=== PATIENT | female | born 1970 | race Caucasian/White ===

== ENCOUNTER → 2020-02-23 07:42 | Outpatient (BNVA) | payer MEDICAID, SELFPAY | PROVIDERS: Family Provider Family Medicine; PCP Family Medicine; Visit Provider Nurse Practitioner Psychiatric/Mental Health | DX: F31.81 Bipolar II disorder (principal); F40.01 Agoraphobia with panic disorder; F90.0 Attention-deficit hyperactivity disorder, predominantly inattentive type; F43.12 Post-traumatic stress disorder, chronic; F50.2 Bulimia nervosa | CPT/HCPCS: 99214 ==

== ENCOUNTER → 2020-04-18 08:02 | Outpatient (BNVA) | payer MEDICAID, SELFPAY | PROVIDERS: Family Provider Family Medicine; PCP Family Medicine; Visit Provider Nurse Practitioner Psychiatric/Mental Health | DX: F31.81 Bipolar II disorder (principal); F40.01 Agoraphobia with panic disorder; F60.3 Borderline personality disorder; F90.0 Attention-deficit hyperactivity disorder, predominantly inattentive type; F43.12 Post-traumatic stress disorder, chronic; F50.2 Bulimia nervosa; F41.1 Generalized anxiety disorder; Z79.899 Other long term (current) drug therapy | CPT/HCPCS: 99214 ==

== ENCOUNTER → 2020-05-03 07:47 | Outpatient (BNVA) | payer MEDICAID, SELFPAY | PROVIDERS: Family Provider Family Medicine; PCP Family Medicine; Visit Provider Social Worker Clinical | DX: F43.12 Post-traumatic stress disorder, chronic (principal); F33.2 Major depressive disorder, recurrent severe without psychotic features; F41.0 Panic disorder [episodic paroxysmal anxiety] | CPT/HCPCS: 90791 ==

== ENCOUNTER → 2020-05-15 07:36 | Outpatient (BNVA) | payer MEDICAID, SELFPAY | PROVIDERS: Family Provider Family Medicine; PCP Family Medicine; Visit Provider Nurse Practitioner Psychiatric/Mental Health | DX: F31.81 Bipolar II disorder (principal); F40.01 Agoraphobia with panic disorder; F60.3 Borderline personality disorder; F90.0 Attention-deficit hyperactivity disorder, predominantly inattentive type; F43.12 Post-traumatic stress disorder, chronic; F50.2 Bulimia nervosa | CPT/HCPCS: 99214 ==

== ENCOUNTER → 2020-05-17 07:42 | Outpatient (BNVA) | payer MEDICAID, SELFPAY | PROVIDERS: Family Provider Family Medicine; PCP Family Medicine; Visit Provider Social Worker Clinical | DX: F60.3 Borderline personality disorder (principal); F50.2 Bulimia nervosa; F31.81 Bipolar II disorder; F43.12 Post-traumatic stress disorder, chronic; F40.01 Agoraphobia with panic disorder | CPT/HCPCS: 90834 ==

== ENCOUNTER → 2020-07-17 08:32 | Outpatient (BNVA) | payer MEDICAID, SELFPAY | PROVIDERS: Family Provider Family Medicine; PCP Family Medicine; Visit Provider Nurse Practitioner Psychiatric/Mental Health | DX: F31.81 Bipolar II disorder (principal); F40.01 Agoraphobia with panic disorder; F60.3 Borderline personality disorder; F90.0 Attention-deficit hyperactivity disorder, predominantly inattentive type; F43.12 Post-traumatic stress disorder, chronic; F50.2 Bulimia nervosa | CPT/HCPCS: 99214 ==

== ENCOUNTER → 2020-07-31 08:51 | Outpatient (BNVA) | payer MEDICAID, SELFPAY | PROVIDERS: Family Provider Family Medicine; PCP Family Medicine; Visit Provider Social Worker Clinical | DX: F60.3 Borderline personality disorder (principal); F50.2 Bulimia nervosa; F31.81 Bipolar II disorder; F43.12 Post-traumatic stress disorder, chronic; F40.01 Agoraphobia with panic disorder | CPT/HCPCS: 90834 ==

== ENCOUNTER → 2020-08-14 07:57 | Outpatient (BNVA) | payer MEDICAID, SELFPAY | PROVIDERS: Family Provider Family Medicine; PCP Family Medicine; Visit Provider Nurse Practitioner Psychiatric/Mental Health | DX: F31.81 Bipolar II disorder (principal); F40.01 Agoraphobia with panic disorder; F60.3 Borderline personality disorder; F90.0 Attention-deficit hyperactivity disorder, predominantly inattentive type; F43.12 Post-traumatic stress disorder, chronic; F50.2 Bulimia nervosa | CPT/HCPCS: 99214 ==

== ENCOUNTER → 2020-08-24 12:36 | Outpatient (BNVA) | payer MEDICAID, SELFPAY | PROVIDERS: Family Provider Family Medicine; PCP Family Medicine; Visit Provider Nurse Practitioner Psychiatric/Mental Health | DX: Z79.899 Other long term (current) drug therapy (principal) | CPT/HCPCS: 80053; 80061; 83036; 84443; 85025 ==

== ENCOUNTER → 2020-09-04 08:52 | Outpatient (BNVA) | payer MEDICAID, SELFPAY | PROVIDERS: Family Provider Family Medicine; PCP Family Medicine; Visit Provider Nurse Practitioner Psychiatric/Mental Health | DX: F31.81 Bipolar II disorder (principal); F40.01 Agoraphobia with panic disorder; F17.210 Nicotine dependence, cigarettes, uncomplicated; F60.3 Borderline personality disorder; F90.0 Attention-deficit hyperactivity disorder, predominantly inattentive type; F43.12 Post-traumatic stress disorder, chronic | CPT/HCPCS: 99214 ==

== ENCOUNTER → 2020-09-14 09:14 | Outpatient (BNVA) | payer MEDICAID, SELFPAY | PROVIDERS: Family Provider Family Medicine; PCP Family Medicine; Visit Provider Nurse Practitioner Psychiatric/Mental Health | DX: F31.81 Bipolar II disorder (principal); F40.01 Agoraphobia with panic disorder; F60.3 Borderline personality disorder; F90.0 Attention-deficit hyperactivity disorder, predominantly inattentive type; F43.12 Post-traumatic stress disorder, chronic; F50.2 Bulimia nervosa; F41.1 Generalized anxiety disorder | CPT/HCPCS: 99214 ==

== ENCOUNTER → 2020-09-22 07:34 | Outpatient (BNVA) | payer MEDICAID, SELFPAY | PROVIDERS: Family Provider Family Medicine; PCP Family Medicine; Visit Provider Social Worker Clinical | DX: F60.3 Borderline personality disorder (principal); F50.2 Bulimia nervosa; F31.81 Bipolar II disorder; F43.12 Post-traumatic stress disorder, chronic; F90.0 Attention-deficit hyperactivity disorder, predominantly inattentive type | CPT/HCPCS: 90834 ==

== ENCOUNTER → 2020-09-28 08:37 | Outpatient (BNVA) | payer MEDICAID, SELFPAY | PROVIDERS: Family Provider Family Medicine; PCP Family Medicine; Visit Provider Nurse Practitioner Psychiatric/Mental Health | DX: F31.81 Bipolar II disorder (principal); F40.01 Agoraphobia with panic disorder; F60.3 Borderline personality disorder; F90.0 Attention-deficit hyperactivity disorder, predominantly inattentive type; F43.12 Post-traumatic stress disorder, chronic; F50.2 Bulimia nervosa | CPT/HCPCS: 99214 ==

== ENCOUNTER → 2020-10-17 08:09 | Outpatient (BNVA) | payer MEDICAID, SELFPAY | PROVIDERS: Family Provider Family Medicine; PCP Family Medicine; Visit Provider Social Worker Clinical | DX: F60.3 Borderline personality disorder (principal); F50.2 Bulimia nervosa; F31.81 Bipolar II disorder; F43.12 Post-traumatic stress disorder, chronic; F90.0 Attention-deficit hyperactivity disorder, predominantly inattentive type | CPT/HCPCS: 90832 ==

== ENCOUNTER → 2020-10-24 08:21 | Outpatient (BNVA) | payer MEDICAID, SELFPAY | PROVIDERS: Family Provider Family Medicine; PCP Family Medicine; Visit Provider Social Worker Clinical | DX: F60.3 Borderline personality disorder (principal); F50.2 Bulimia nervosa; F31.81 Bipolar II disorder; F43.12 Post-traumatic stress disorder, chronic; F40.01 Agoraphobia with panic disorder | CPT/HCPCS: 90832 ==

== ENCOUNTER → 2020-10-25 07:37 | Outpatient (BNVA) | payer MEDICAID, SELFPAY | PROVIDERS: Family Provider Family Medicine; PCP Family Medicine; Visit Provider Nurse Practitioner Psychiatric/Mental Health | DX: F31.81 Bipolar II disorder (principal); F40.01 Agoraphobia with panic disorder; F60.3 Borderline personality disorder; F90.0 Attention-deficit hyperactivity disorder, predominantly inattentive type; F43.12 Post-traumatic stress disorder, chronic; F50.2 Bulimia nervosa | CPT/HCPCS: 99213 ==

== ENCOUNTER → 2020-12-06 07:40 | Outpatient (BNVA) | payer MEDICAID, SELFPAY | PROVIDERS: Family Provider Family Medicine; PCP Family Medicine; Visit Provider Nurse Practitioner Psychiatric/Mental Health | DX: F31.81 Bipolar II disorder (principal); F40.01 Agoraphobia with panic disorder; F60.3 Borderline personality disorder; F90.0 Attention-deficit hyperactivity disorder, predominantly inattentive type; F43.12 Post-traumatic stress disorder, chronic; F50.2 Bulimia nervosa | CPT/HCPCS: 99213 ==

== ENCOUNTER → 2021-02-19 07:22 | Outpatient (BNVA) | payer MEDICAID, SELFPAY | PROVIDERS: Family Provider Family Medicine; PCP Family Medicine; Visit Provider Nurse Practitioner Psychiatric/Mental Health | DX: F31.81 Bipolar II disorder (principal); F40.01 Agoraphobia with panic disorder; F43.12 Post-traumatic stress disorder, chronic; F60.3 Borderline personality disorder; Z03.89 Encounter for observation for other suspected diseases and conditions ruled out; Z79.899 Other long term (current) drug therapy; F90.0 Attention-deficit hyperactivity disorder, predominantly inattentive type; F50.2 Bulimia nervosa | CPT/HCPCS: 99214 ==

== ENCOUNTER → 2021-03-26 08:00 | Outpatient (BNVA) | payer MEDICAID, SELFPAY | PROVIDERS: Family Provider Family Medicine; PCP Family Medicine; Visit Provider Social Worker Clinical | DX: F60.3 Borderline personality disorder (principal); F31.81 Bipolar II disorder; F43.12 Post-traumatic stress disorder, chronic; F90.0 Attention-deficit hyperactivity disorder, predominantly inattentive type; F40.01 Agoraphobia with panic disorder | CPT/HCPCS: 90834 ==

== ENCOUNTER → 2021-03-27 07:57 | Outpatient (BNVA) | payer MEDICAID, SELFPAY | PROVIDERS: Family Provider Family Medicine; PCP Family Medicine; Visit Provider Nurse Practitioner Psychiatric/Mental Health | DX: F31.81 Bipolar II disorder (principal); F17.210 Nicotine dependence, cigarettes, uncomplicated; F40.01 Agoraphobia with panic disorder; F60.3 Borderline personality disorder; Z03.89 Encounter for observation for other suspected diseases and conditions ruled out; F90.0 Attention-deficit hyperactivity disorder, predominantly inattentive type; F43.12 Post-traumatic stress disorder, chronic; F50.2 Bulimia nervosa | CPT/HCPCS: 99214 ==

== ENCOUNTER → 2021-04-03 08:09 | Outpatient (BNVA) | payer MEDICAID, SELFPAY | PROVIDERS: Family Provider Family Medicine; PCP Family Medicine; Visit Provider Nurse Practitioner Psychiatric/Mental Health | DX: F31.81 Bipolar II disorder (principal); F40.01 Agoraphobia with panic disorder; F17.210 Nicotine dependence, cigarettes, uncomplicated; F60.3 Borderline personality disorder; F90.0 Attention-deficit hyperactivity disorder, predominantly inattentive type; F43.12 Post-traumatic stress disorder, chronic; F50.2 Bulimia nervosa | CPT/HCPCS: 99214 ==

== ENCOUNTER → 2021-04-24 07:31 | Outpatient (BNVA) | payer MEDICAID, SELFPAY | PROVIDERS: Family Provider Family Medicine; PCP Family Medicine; Visit Provider Nurse Practitioner Psychiatric/Mental Health | DX: F31.81 Bipolar II disorder (principal); F40.01 Agoraphobia with panic disorder; F17.210 Nicotine dependence, cigarettes, uncomplicated; F60.3 Borderline personality disorder; F90.0 Attention-deficit hyperactivity disorder, predominantly inattentive type; F43.12 Post-traumatic stress disorder, chronic; F50.2 Bulimia nervosa | CPT/HCPCS: 99214 ==

== ENCOUNTER → 2021-05-08 07:21 | Outpatient (BNVA) | payer MEDICAID, SELFPAY | PROVIDERS: Family Provider Family Medicine; PCP Family Medicine; Visit Provider Nurse Practitioner Psychiatric/Mental Health | DX: F31.81 Bipolar II disorder (principal); F40.01 Agoraphobia with panic disorder; F60.3 Borderline personality disorder; F90.0 Attention-deficit hyperactivity disorder, predominantly inattentive type; F43.12 Post-traumatic stress disorder, chronic; F50.2 Bulimia nervosa; F17.210 Nicotine dependence, cigarettes, uncomplicated | CPT/HCPCS: 99214 ==

== ENCOUNTER → 2021-07-03 07:23 | Outpatient (BNVA) | payer MEDICAID, SELFPAY | PROVIDERS: Family Provider Family Medicine; PCP Family Medicine; Visit Provider Nurse Practitioner Psychiatric/Mental Health | DX: F31.81 Bipolar II disorder (principal); F40.01 Agoraphobia with panic disorder; F60.3 Borderline personality disorder; F90.0 Attention-deficit hyperactivity disorder, predominantly inattentive type; F43.12 Post-traumatic stress disorder, chronic; F50.2 Bulimia nervosa | CPT/HCPCS: 99214 ==

== ENCOUNTER → 2021-09-04 07:51 | Outpatient (BNVA) | payer MEDICAID, SELFPAY | PROVIDERS: Family Provider Family Medicine; PCP Family Medicine; Visit Provider Nurse Practitioner Psychiatric/Mental Health | DX: F31.81 Bipolar II disorder (principal); F40.01 Agoraphobia with panic disorder; F60.3 Borderline personality disorder; F90.0 Attention-deficit hyperactivity disorder, predominantly inattentive type; F43.12 Post-traumatic stress disorder, chronic; Z79.899 Other long term (current) drug therapy; F50.2 Bulimia nervosa | CPT/HCPCS: 99214 ==

== ENCOUNTER → 2021-10-09 08:02 | Outpatient (BNVA) | payer MEDICAID, SELFPAY | PROVIDERS: Family Provider Family Medicine; PCP Family Medicine; Visit Provider Nurse Practitioner Psychiatric/Mental Health | DX: F31.81 Bipolar II disorder (principal); F40.01 Agoraphobia with panic disorder; F60.3 Borderline personality disorder; F90.0 Attention-deficit hyperactivity disorder, predominantly inattentive type; F43.12 Post-traumatic stress disorder, chronic; F50.2 Bulimia nervosa | CPT/HCPCS: 99214 ==

== ENCOUNTER → 2021-10-31 09:48 | Outpatient (BNVA) | payer MEDICAID, SELFPAY | PROVIDERS: Family Provider Family Medicine; PCP Family Medicine; Visit Provider Social Worker Clinical | DX: F43.12 Post-traumatic stress disorder, chronic (principal); F40.01 Agoraphobia with panic disorder; F33.2 Major depressive disorder, recurrent severe without psychotic features | CPT/HCPCS: 90791 ==

== ENCOUNTER → 2021-11-19 07:38 | Outpatient (BNVA) | payer MEDICAID, SELFPAY | PROVIDERS: Family Provider Family Medicine; PCP Family Medicine; Visit Provider Nurse Practitioner Psychiatric/Mental Health | DX: F31.81 Bipolar II disorder (principal); F40.01 Agoraphobia with panic disorder; F60.3 Borderline personality disorder; F90.0 Attention-deficit hyperactivity disorder, predominantly inattentive type; F43.12 Post-traumatic stress disorder, chronic; F50.2 Bulimia nervosa | CPT/HCPCS: 99214 ==

== ENCOUNTER → 2021-12-13 08:28 | Outpatient (BNVA) | payer MEDICAID, SELFPAY | PROVIDERS: Family Provider Family Medicine; PCP Family Medicine; Visit Provider Social Worker Clinical | DX: F60.3 Borderline personality disorder (principal); F31.81 Bipolar II disorder; F43.12 Post-traumatic stress disorder, chronic; F90.0 Attention-deficit hyperactivity disorder, predominantly inattentive type; F40.01 Agoraphobia with panic disorder | CPT/HCPCS: 90834 ==

== ENCOUNTER → 2021-12-24 07:28 | Outpatient (BNVA) | payer MEDICAID, SELFPAY | PROVIDERS: Family Provider Family Medicine; PCP Family Medicine; Visit Provider Nurse Practitioner Psychiatric/Mental Health | DX: F31.81 Bipolar II disorder (principal); F43.12 Post-traumatic stress disorder, chronic; F40.01 Agoraphobia with panic disorder; F60.3 Borderline personality disorder; F90.0 Attention-deficit hyperactivity disorder, predominantly inattentive type; F50.2 Bulimia nervosa | CPT/HCPCS: 99214 ==

== ENCOUNTER 2022-01-15 12:47 | Outpatient (CLI) | payer MEDICAID, SELFPAY ==
--- NOTE | 2022-01-15 13:12 | MR_ITS ---
WS: [id number] MRI LUMBAR SPINE NONCONTRAST HISTORY: RADICULOPATHY, LUMBOSACRAL REGION COMPARISON: None available. TECHNIQUE: Sagittal and axial multisequence imaging is submitted. On the fine arts model survey small osteophytes and disc protrusions throughout the cervical spine encroaching upon the cervical cord causing at least a mild stenosis from C3-4 to C5-6. There is an additional foc al disc protrusion at T2-3 causing mild contact on the cord. Marked straightening of the normal lumbar lordosis. Prior posterior lumbar fusion at L4-S1. No hardwa re noted at the L5 level. Interbody spacer at L4-5 and probably also at L5-S1. Disc space narrowing is moderate L4-5 and L5-S1. No fractures or marrow edema. Conus terminates normally at L1-2 disc level. T12-L1: Small RIGHT paracentral disc protrusion. L1-L2: Small LEFT paracentral disc protrusion with annular fissure. Mild contact on the ventral theca l sac and mild LEFT subarticular recess narrowing. L2-L3: Mild disc bulging. Mild ligamentum flavum hypertrophy and facet arthritis. Mild bilateral fora ozzie narrowing. L3-L4: Mild annular disc bulging. There is a very shallow LEFT proximal foraminal disc protrusion cau sing moderate subarticular recess stenosis. Mild ligamentum flavum hypertrophy. L4-L5: Mild deformity of the ventral thecal sac. On the axial sequence the interbody spacer may be di splaced posteriorly against thecal sac. This would be abutting the traversing LEFT L5 nerve root. The re may be distortion from the hardware. Mild LEFT foraminal stenosis. Moderate size laminectomy defec t. L5-S1: No significant stenosis. Moderate-sized posterior laminectomy defect. Posterior exophytic 9 mm cyst from the RIGHT kidney. MR/MR lumbar spine wo con* [id number] IMPRESSION: 1. Patient is status post posterior lumbar fusion with the hardware L4 and S1. Interbody spacers at L4-5 and L5-S1. 2. Suspect posterior retropulsion of the L4-5 interbody spacer contacting the LEFT lateral thecal sac and the LEFT L5 traversing nerve root. This can be conf irmed by CT evaluation of the lumbar spine. 3. Proximal LEFT foraminal disc protrusion at L3-4 resulting in moderate subar ticular stenosis. 4. Small RIGHT paracentral disc protrusion at T12-L1. 5. Small LEFT paracentral disc protrusion at L1-2 with mild contact and narrow ing of the LEFT subarticular recess.
== END 2022-01-15 12:48 | disposition home or self-care (01) ==
LOC: RAD 12:54
PROVIDERS: Visit Provider Nurse Practitioner
DX: M54.17 Radiculopathy, lumbosacral region (principal); M51.26 Other intervertebral disc displacement, lumbar region; M51.24 Other intervertebral disc displacement, thoracic region
CPT/HCPCS: 72148

== ENCOUNTER → 2022-01-28 08:20 | Outpatient (BNVA) | payer MEDICAID, SELFPAY | PROVIDERS: Visit Provider Social Worker Clinical | DX: F60.3 Borderline personality disorder (principal); F31.81 Bipolar II disorder; F43.12 Post-traumatic stress disorder, chronic; F90.0 Attention-deficit hyperactivity disorder, predominantly inattentive type; F40.01 Agoraphobia with panic disorder | CPT/HCPCS: 90834 ==

== ENCOUNTER → 2022-02-06 07:28 | Outpatient (BNVA) | payer MEDICAID, SELFPAY | PROVIDERS: Visit Provider Nurse Practitioner Psychiatric/Mental Health | DX: F31.81 Bipolar II disorder (principal); F40.01 Agoraphobia with panic disorder; F60.3 Borderline personality disorder; F90.0 Attention-deficit hyperactivity disorder, predominantly inattentive type; F43.12 Post-traumatic stress disorder, chronic; F50.2 Bulimia nervosa | CPT/HCPCS: 99214 ==

== ENCOUNTER → 2022-02-19 07:57 | Outpatient (BNVA) | payer MEDICAID, SELFPAY | PROVIDERS: Visit Provider Social Worker Clinical | DX: F60.3 Borderline personality disorder (principal); F31.81 Bipolar II disorder; F43.12 Post-traumatic stress disorder, chronic; F90.0 Attention-deficit hyperactivity disorder, predominantly inattentive type; F40.01 Agoraphobia with panic disorder | CPT/HCPCS: 90834 ==

== ENCOUNTER → 2022-02-26 07:17 | Outpatient (BNVA) | payer MEDICAID, SELFPAY | PROVIDERS: Visit Provider Social Worker Clinical | DX: F60.3 Borderline personality disorder (principal); F31.81 Bipolar II disorder; F43.12 Post-traumatic stress disorder, chronic; F90.0 Attention-deficit hyperactivity disorder, predominantly inattentive type; F40.01 Agoraphobia with panic disorder | CPT/HCPCS: 90834 ==

== ENCOUNTER → 2022-03-04 07:46 | Outpatient (BNVA) | payer MEDICAID, SELFPAY | PROVIDERS: Visit Provider Social Worker Clinical | DX: F60.3 Borderline personality disorder (principal); F31.81 Bipolar II disorder; F43.12 Post-traumatic stress disorder, chronic; F90.0 Attention-deficit hyperactivity disorder, predominantly inattentive type; F40.01 Agoraphobia with panic disorder | CPT/HCPCS: 90837; 90834 ==

== ENCOUNTER → 2022-03-18 08:48 | Outpatient (BNVA) | payer MEDICAID, SELFPAY | PROVIDERS: Visit Provider Social Worker Clinical | DX: F60.3 Borderline personality disorder (principal); F31.81 Bipolar II disorder; F43.12 Post-traumatic stress disorder, chronic; F90.0 Attention-deficit hyperactivity disorder, predominantly inattentive type; F40.01 Agoraphobia with panic disorder | CPT/HCPCS: 90832; 90834 ==

== ENCOUNTER 2022-03-18 17:08 | Inpatient (IN) | payer MEDICAID, SELFPAY ==
[2022-03-18 17:16] VITALS: BP 129/93; PULSE 101; RESP 18; TEMP 36.8; O2SAT 97; BMI 32.4
--- NOTE | 2022-03-18 17:42 | ED.C_ITS ---
HPI - Psych General: Chief Complaint: Psychiatric Symptoms Stated Complaint: Court ordered Time Seen by Provider: 03/18/22 17:39 Source: patient Mode of arrival: ambulatory Limitations: no limitations History of Present Illness: 52-year-old female is here with police for suicidal ideation she is under 96-hour hold as well. She does have a history of bipolar and depression states last time she was admitted inpatient was 2014 she states that she is under lots of stress has not been getting along with her and has a plan of blowing her brains out with a gun. She denies any worsening improving factors. Denies any recent attempts. Associated symptoms: Reports depression and suicidal ideation Review of Systems Const: Denies: fever(s), chills, body aches or change in appetite Eyes: Denies: blurry vision or eye discomfort ENMT: Denies: throat pain or dental pain Card: Denies: chest pain Resp: Denies: dyspnea GI: Denies: abdominal pain, nausea, vomiting or diarrhea : Denies: dysuria Musc: Denies: neck pain or back pain Skin/Breast: Denies: rash Neuro: Denies: headache(s) Psych: Reports: depression and suicidal ideation Sameer/Lymph: Denies: easy bruising All/Imm: Denies: urticaria PFSH ED PFSH: Medical History ADHD (attention deficit hyperactivity disorder), inattentive type Bipolar II disorder mixed episodes Borderline personality disorder Bulimia nervosa in remission Chronic post-traumatic stress disorder Panic disorder with agoraphobia Psychiatric care Social History Current gender identity: Female Physical Exam Const: COMMON NORMALS: patient oriented x3 GENERAL APPEARANCE: anxious HENMT: COMMON NORMALS: normocephalic and atraumatic HEAD & SCALP: normocephalic and atraumatic Eye: COMMON NORMALS: Equal, round and reactive pupils present and EOMs intact bilaterally PUPIL: Yes Equal, round and reactive pupils present Neck/C-Spine: COMMON NORMALS: full ROM and supple Chest: COMMONS NORMALS: normal inspection of the chest and normal palpation of entire chest wall Resp: COMMON NORMALS: normal respiratory effort, No retractions, No use of accessory muscles and clear to auscultation bilaterally AUSCULTATION: clear to auscultation bilaterally Cardio: COMMON NORMALS: regular rate, regular rhythm and No murmurs present (Cardio) RATE: regular rate RHYTHM: regular rhythm GI: COMMON NORMALS: Normal to inspection, nondistended, normoactive bowel sounds present, Soft to palpation, non-tender and no masses PALPATION: Yes Soft to palpation Extremity: COMMON NORMALS: normal to inspection and full ROM Neuro: COMMON NORMALS: patient oriented x3, moves all extremities and no focal motor deficits Psych: COMMON NORMALS: mental status grossly normal, Normal thought process present and cooperative THOUGHT PROCESS: Normal thought process present THOUGHT CONTENT: Yes Suicidality present Skin: COMMON NORMALS: no rashes or lesions noted and no wounds GENERAL SKIN EXAM: no rashes or lesions noted Course Vital Signs: Vital signs: Vital Signs Temperature 98.3 F 03/18/22 17:16 Pulse Rate 101 H 03/18/22 17:16 Respiratory Rate 18 03/18/22 17:16 Blood Pressure 129/93 03/18/22 17:16 Pulse Oximetry 97 03/18/22 17:16 MDM - Psych Medical Decision Making Patient presents here with suicidal ideations patient is under 96-hour hold patient admitted to the psychiatric zepeda here. Lab Data : 03/18/22 18:15 03/18/22 18:15 Laboratory Results WBC 7.6 10^3/uL (4.0-10.0) 03/18/22 18:15 RBC 4.67 10^6/uL (4.1-5.3) 03/18/22 18:15 Hgb 13.8 g/dL (11.5-15.3) 03/18/22 18:15 Hct 42.7 % (37.0-47.0) 03/18/22 18:15 MCV 91.4 fl (81-99) 03/18/22 18:15 MCH 29.6 pg (28.0-34.0) 03/18/22 18:15 MCHC 32.3 g/dL (30.0-36.0) 03/18/22 18:15 RDW 15.3 % (12.1-15.1) H 03/18/22 18:15 Plt Count 322 10^3/cmm (130-400) 03/18/22 18:15 MPV 9.8 fL (7.4-10.4) 03/18/22 18:15 Neut % (Auto) 64.5 % 03/18/22 18:15 Lymph % (Auto) 23.1 % 03/18/22 18:15 [place] % (Auto) 7.7 % 03/18/22 18:15 Eos % (Auto) 3.7 % 03/18/22 18:15 Baso % (Auto) 0.7 % 03/18/22 18:15 Neut # (Auto) 4.88 10^3/uL (1.8-7.7) 03/18/22 18:15 Lymph # (Auto) 1.8 10^3/uL (0.8-4.8) 03/18/22 18:15 [place] # (Auto) 0.6 10^3/uL (0.2-0.9) 03/18/22 18:15 Eos # (Auto) 0.3 10^3/uL (0.0-0.8) 03/18/22 18:15 Baso # (Auto) 0.1 10^3/uL (0.0-0.1) 03/18/22 18:15 Nucleated RBC % (auto) 0 % 03/18/22 18:15 Nucleated RBCs # 0.0 /100WBC 03/18/22 18:15 Discharge Plan Discharge Patient Disposition: Admitted As Inpatient Clinical Impression: Suicidal ideation Condition: Stable Coding Level of Care Code ED Drill Operator Pneumatic for Kurtisg Fwd Exam Comprehensive
[2022-03-18 18:22] LABS: Basophils # 0.1 10^3/uL (0.0-0.1); Basophils % 0.7 %; Eosinophils # 0.3 10^3/uL (0.0-0.8); Eosinophils % 3.7 %; Hematocrit 42.7 % (37.0-47.0); Hemoglobin 13.8 g/dL (11.5-15.3); Lymphocytes # 1.8 10^3/uL (0.8-4.8); Lymphocytes % 23.1 %; Mean Corpuscular HGB Conc 32.3 g/dL (30.0-36.0); Mean Corpuscular Hemoglobin 29.6 pg (28.0-34.0); Mean Corpuscular Volume 91.4 fl (81-99); Mean Platelet Volume 9.8 fL (7.4-10.4); Monocytes # 0.6 10^3/uL (0.2-0.9); Monocytes % 7.7 %; Neutrophils # 4.88 10^3/uL (1.8-7.7); Neutrophils % 64.5 %; Nucleated Red Blood Cells % 0 %; Platelet Count 322 10^3/cmm (130-400); Red Blood Count 4.67 10^6/uL (4.1-5.3); Red Cell Distribution Width 15.3 % (12.1-15.1); White Blood Count 7.6 10^3/uL (4.0-10.0)
[2022-03-18 18:45] LABS: Alanine Aminotransferase 17 U/L (0-33); Albumin Level 4.1 g/dL (3.5-5.2); Alkaline Phosphatase 105 IU/L (35-105); Anion Gap 11.6 (5-19); Aspartate Amino Transferase 14 U/L (0-32); Blood Urea Nitrogen 7 mg/dL (6-20); Calcium 9.2 mg/dL (8.5-10.5); Carbon Dioxide 28 mmol/L (22-29); Chloride 103 mmol/L (98-107); Globulin 3.2 g/dL (1.3-4.6); Glomerular Filtration Rate 129.1 mL/min (90-130); Glucose 98 mg/dL (65-115); Osmolality Calculated 286 mOsm/kg (285-295); Potassium 3.6 mmol/L (3.5-5.1); Salicylate 1.5 mg/dL (3-10); Sodium 139 mmol/L (136-145); Total Bilirubin 0.2 mg/dL (0.15-1.2); Total Protein 7.3 g/dL (6.6-8.7)
[2022-03-18 18:47] LABS: Acetaminophen < 5.0 ug/mL (10-30); Alcohol Level 10 mg/dL (0-10)
--- NOTE | 2022-03-18 19:01 | PC.NURSE ---
190 assumed pt care from Hector ELAINE
[2022-03-18 19:09] LABS: Amphetamines Screen Urine Positive (Negative); Barbiturates Screen Urine Negative (Negative); Benzodiazepines Screen Urine Positive (Negative); Cocaine Screen Urine Negative (Negative); Opiate Screen Urine Negative (Negative); PCP Screen Urine Negative (Negative); THC Screen Urine Negative (Negative)
[2022-03-18 20:58] VITALS: BP 135/103; PULSE 85; RESP 18; O2SAT 97
[2022-03-18 21:33] VITALS: BP 125/87; PULSE 77; RESP 17; TEMP 36.4; O2SAT 98
[2022-03-18 21:56] VITALS: BP 125/87; PULSE 77; RESP 17; TEMP 36.4; O2SAT 98
[2022-03-18] MEDS: trazodone 50 mg Tablet PO (22:16)
--- NOTE | 2022-03-18 23:07 | PC.NURSE ---
PER ED 52-year-old female is here with police for suicidal ideation she is under 96-hour hold as well. She does have a history of bipolar and depression states last time she was admitted inpatient was 2014 she states that she is under lots of stress has not been getting along with her and has a plan of blowing her brains out with a gun. She denies any worsening improving factors. Denies any recent attempts. Associated symptoms: Reports depression and suicidal ideation. UPON ARRIVAL TO NPU PT IS ANXIOUS BUT COOPERATIVE. STATES THAT SHE SPOKE TO HER THERAPIST ON THE PHONE THIS MORNING RIGHT AFTER A BIG ARGUMENT WITH AND VOICED SI. STATES THAT IT WAS JUST THOUGHTS AND HAD NO INTENT TO ACT ON IT. DENIES ANY CURRENT SI/HI OR AVH. REPORTS THAT SHE NEEDS TO MOVE OUT OF 'S HOUSE AND THAT THIS WILL FIX HER ISSUES. HAS HX OF PARTIAL HYSTERECTOMY, AND CALLI IN BACK FOR FUSION SURGERY. DIAGNOSES OF BIPOLAR, ADHD, BORDERLINE PERSONALITY, PTSD, PANIC DISORDER WITH AGORAPHOBIA AND A HX OF BULIMIA THAT IS IN REMISSION. MEDICATIONS NOT RESUMED THEY COULD NOT BE CONFIRMED TONIGHT, WILL CONFIRM IN MORNING WITH PHARMACY ([facility] IN [facility]). PT COOPERATIVE WITH CARE AND IS A&OX4. PT REPORTS MED LIST FOLLOWS WITH LAST DOSES TAKEN THIS MORNING- CLONAZAPAM 1 MG TID CLONIDINE 0.1 MG BID GABAPENTIN 300 MG QD VYVANCE 70 MG QAM OXCARBAZEPINE 600 MG BID
[2022-03-19 06:00] VITALS: BP 121/82; PULSE 67; RESP 16; TEMP 36.4; O2SAT 98
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
[2022-03-19 14:00] VITALS: BP 119/77; PULSE 77; RESP 16; TEMP 36.3; O2SAT 96
[2022-03-19] MEDS: acetaminophen 325 mg Tablet 650 MG PO (15:28)
[2022-03-19] MEDS: CLONazepam 1 mg Tablet PO ×2 (15:29→19:58)
[2022-03-19] MEDS: gabapentin 300 mg Capsule PO ×2 (16:02→19:57)
--- NOTE | 2022-03-19 17:10 | PC.SOCIAL ---
Patient did not attend group.
[2022-03-19 18:19] VITALS: BP 119/77
[2022-03-19] MEDS: cloNIDine 0.1 mg Tablet PO (18:19)
[2022-03-19] MEDS: OXcarbazepine 300 mg Tablet 600 MG PO (18:19)
[2022-03-19] MEDS: trazodone 50 mg Tablet PO ×2 (19:58→21:16)
[2022-03-19 21:10] VITALS: BP 129/89; PULSE 86; RESP 17; TEMP 36.4; O2SAT 96
[2022-03-20 06:00] VITALS: BP 118/78; PULSE 78; RESP 18; TEMP 36.8; O2SAT 96
[2022-03-20 08:44] VITALS: BP 118/78
[2022-03-20] MEDS: OXcarbazepine 300 mg Tablet 600 MG PO ×2 (08:44→17:31)
[2022-03-20] MEDS: CLONazepam 1 mg Tablet PO ×3 (08:44→20:02)
[2022-03-20] MEDS: gabapentin 300 mg Capsule PO ×2 (08:44→20:02)
[2022-03-20] MEDS: cloNIDine 0.1 mg Tablet PO ×2 (08:44→17:31)
[2022-03-20 14:00] VITALS: BP 124/69; PULSE 78; RESP 17; TEMP 36.6; O2SAT 97
--- NOTE | 2022-03-20 14:29 | P.NPUPN_ITS ---
Subjective NPU Subjective: Patient presents today reporting that she feels much better and denies any need to be in the hospital. She denies any need. We discussed the fact that she is on a 96-hour hold and we are still waiting to hear from son about weapon availability. We discussed the fact that Dr. Camilo would be there in the morning and the treatment team and the change would not make it harder for her to be discharged on the 96-hour hold. We discussed the likelihood of discharge in the morning but did not remove the chance that with information returning that she be discharged tonight. Medications: Medication Review Details: This is an obese, white female, in hospital scrubs, with limited grooming, and adequate eye contact. No abnormal movements. Cooperative with exam in no acute distress. Speech was normal rate and volume. Mood described as okay, I think I am ready to go home; affect slightly subdued. Thought process, organized. Thought content: patient denied any suicidal or homicidal ideation, there were no delusions reported or noted, patient denied any auditory or visual hallucinations. Attention, concentration, and memory appear intact but were not formally tested. She is alert and oriented times three. Insight and judgment appear fair, impulse control is limited. Vitals/I&O/Wt Last Vital Signs Temp 97.9 F 03/20/22 14:00 Pulse 78 03/20/22 14:00 Resp 17 03/20/22 14:00 BP 124/69 03/20/22 14:00 Pulse Ox 97 03/20/22 14:00 Data NPU : 03/18/22 18:15 03/18/22 18:15 A&P Assessment and plan (1) Suicidal ideation: Status: Acute (2) Borderline personality disorder: Status: Suspected (3) Bipolar II disorder: Status: Chronic (4) Chronic post-traumatic stress disorder: Status: Chronic (5) ADHD (attention deficit hyperactivity disorder), inattentive type: Status: Chronic (6) Panic disorder with agoraphobia: Status: Chronic Plan This is a 52-year-old, white female, with a history of depression and anxiety, and attention deficit hyperactivity disorder, who presents on a 96-hour hold secondary to suicidal threats versus homicidal threats. RECOMMENDATION AND PLAN: 1. Continue current medication. 2. Encourage individual, group, and milieu therapy. 3. Continue q-15 minute checks for safety. 4. Plan for discharge in the morning. Involuntary Hold Information 96 Hour Hold: 96 Hour Involuntary Admission: Yes 96 Hour Hold Ending Date: 03/22/22 96 Hour Hold Ending Time: 17:08 Attestations NPU Medical Necessity Statement*: Inpatient hospitalization is medically necessary and the clinically appropriate intervention at this time. We will monitor medication to make changes as indicated. . Likely length of stay 1-3 days. Coding Level of Care Code Acute [facility] for [facility] Fwd Diagnoses Suicidal ideation R45.851 Borderline personality disorder F60.3 Bipolar II disorder F31.81 Chronic post-traumatic stress disorder F43.12 ADHD (attention deficit hyperactivity disorder), inattentive type F90.0 Panic disorder with agoraphobia F40.01
--- NOTE | 2022-03-20 16:44 | PC.NURSE ---
[facility] CALLED PTS SON FROM THIS UNIT AND CLARIFIED THAT ALL GUNS AND WEAPONS HAVE BEEN REMOVED FROM PTS HOME, PTS SON KANA ALSO STATED TO ANIMATION PRODUCER THAT HE JEANINE BE THERE FOR HIS MOM TO SUPPORT HER WHEN DISCHARGED. DR OSUNA WAS INFORMED OF REPORT GIVEN BY SON TO ANIMATION PRODUCER VIA PHONE CALL BY FRANCISCO
[2022-03-20 17:31] VITALS: BP 124/69
[2022-03-20] MEDS: trazodone 50 mg Tablet PO (20:02)
[2022-03-20 20:54] VITALS: BP 136/91; PULSE 79; RESP 18; TEMP 36.5; O2SAT 99
[2022-03-21 06:00] VITALS: BP 143/73; PULSE 87; RESP 18; TEMP 36.9; O2SAT 96
[2022-03-21] MEDS: acetaminophen 325 mg Tablet 650 MG PO ×2 (06:09→10:09)
--- NOTE | 2022-03-21 08:20 | P.NPUDS_ITS ---
Diagnoses at Discharge Discharge Diagnosis (1) Suicidal ideation: Status: Acute (2) Borderline personality disorder: Status: Suspected (3) Bipolar II disorder: Status: Chronic Permanent problem details: mixed episodes (4) Chronic post-traumatic stress disorder: Status: Chronic (5) ADHD (attention deficit hyperactivity disorder), inattentive type: Status: Chronic (6) Panic disorder with agoraphobia: Status: Chronic Reason for Visit Reason for Visit: Court ordered Brief History: History of Present Illness Karen Crews is a 52 year old female who presented to the emergency department the following report: Chief Complaint: Psychiatric Symptoms Stated Complaint: Court ordered Time Seen by Provider: 03/18/22 17:39 Source: patient Mode of arrival: ambulatory Limitations: no limitations History of Present Illness:?? 52-year-old female is here with police for suicidal ideation she is under 96- hour hold as well.? She does have a history of bipolar and depression states last time she was admitted inpatient was 2014 she states that she is under lots of stress has not been getting along with her and has a plan of blowing her brains out with a gun.? She denies any worsening improving factors.? Denies any recent attempts. Associated symptoms: Reports depression and suicidal ideation She was admitted to the neuropsychiatric unit for definitive treatment of those issues. She presents today reporting that she has been psychiatrically hospitalized one time and it was in 2014 in [place]. She had outpatient services at [facility]. She has had medication management and takes Vyvanse, Trileptal, Klonopin, and Neurontin. She reports that she vapes, she does not drink alcohol with any regularity. She does not smoke marijuana or use any other illicit drugs. She has never been to rehab and never had a DUI. She reports that she has had psychiatric treatment for depression, anxiety, attention deficit hyperactivity disorder for years and reports that what caused her presentation on a 96-hour hold was that she got in an argument with her . 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 He left on the road and is usually gone for about a week, and she reports she is from the [place] area, but she wants to move to [place], [place] where she has sons and grandkids. She reports she did say she was suicidal, but she denies currently being suicidal. She reports that there has just been so much recently, and she just needs to have a place of her own and to move on with her life. She reports her medications are effective and she denies any need for any changes. She reports she has never had a suicide attempt, but she has had suicidal thoughts, and certainly been at risk for suicidal behavior. She reports she has never been an aggressive person. Hospital Course Hospital Course She slowly acclimated to the individual, group and milieu therapies provided. She was continued on her outpatient medications unchanged. She tolerated these doses and showed steady improvement during her stay. She was able to contract for safety outside hospital prior to discharge. During the hospitalization, patient had routine laboratory studies which were within normal limits except for few outliers. Additionally there was a general medical evaluation which was also within normal limits and revealed no new acute processes. Discharge Summary: At the time of discharge, lethality was denied. Family was contacted and confirmed that the weapons are out of the house. They are aware of the situation and will monitor her access to weapons. Mood and anxiety were well managed. Patient endorsed a plan to follow-up with the aftercare re commendations of the treatment team. Patient was evaluated and deemed to be absent credible lethality, and had achieved the maximum benefit from an inpatient hospitalization, so was discharged. Involuntary Hold Information 96 Hour Hold: 96 Hour Involuntary Admission: Yes 96 Hour Hold Ending Date: 03/22/22 96 Hour Hold Ending Time: 17:08 Mental Status Exam MSE Comments: This is an obese, white female, in hospital scrubs, with limited grooming, and adequate eye contact. No abnormal movements. Cooperative with exam in no acute distress. Speech was normal rate and volume. Mood described as good; affect slightly subdued. Thought process, organized. Thought content: patient denied any suicidal or homicidal ideation, there were no delusions reported or noted, patient denied any auditory or visual hallucinations. Attention, concentration, and memory appear intact but were not formally tested. She is alert and oriented times three. Insight and judgment appear fair, impulse control is limited. Cognition: Patient Appearance: Appropriate Level of Consciousness: Awake, Alert, Appropriate and Follows Commands Patient Cognition Impaired: No Ability to Follow Directions: Good Patient Orientation (long list): Person, Place, Name, Age and Birthday Comprehension Ability: Understands Concepts Hallucination Type: None Delusion Description: Not Present Thought Process: Appropriate Affect: Affect Description: Appropriate and Calm Depressive Symptoms: Hopelessness, Increased Anxiety and Unhappiness Behavior: Patient Behavior: Appropriate and Cooperative Speech Pattern: Appropriate and Clear Discharge Data Studies Completed and Pending: Laboratory Results WBC 7.6 10^3/uL (4.0- 10.0) 03/18/22 18:15 RBC 4.67 10^6/uL (4.1 -5.3) 03/18/22 18:15 Hgb 13.8 g/dL (11.5-1 5.3) 03/18/22 18:15 Hct 42.7 % (37.0-47.0 ) 03/18/22 18:15 MCV 91.4 fl (81-99) 03/18/22 18:15 MCH 29.6 pg (28.0-34. 0) 03/18/22 18:15 MCHC 32.3 g/dL (30.0-3 6.0) 03/18/22 18:15 RDW 15.3 % (12.1-15.1 ) H 03/18/22 18:15 Plt Count 322 10^3/cmm (130 -400) 03/18/22 18:15 MPV 9.8 fL (7.4-10.4) 03/18/22 18:15 Neut % (Auto) 64.5 % 03/18/22 18:15 Lymph % (Auto) 23.1 % 03/18/22 18:15 Garden % (Auto) 7.7 % 03/18/22 18:15 Eos % (Auto) 3.7 % 03/18/22 18:15 Baso % (Auto) 0.7 % 03/18/22 18:15 Neut # (Auto) 4.88 10^3/uL (1.8 -7.7) 03/18/22 18:15 Lymph # (Auto) 1.8 10^3/uL (0.8- 4.8) 03/18/22 18:15 Garden # (Auto) 0.6 10^3/uL (0.2- 0.9) 03/18/22 18:15 Eos # (Auto) 0.3 10^3/uL (0.0- 0.8) 03/18/22 18:15 Baso # (Auto) 0.1 10^3/uL (0.0- 0.1) 03/18/22 18:15 Nucleated RBC % (a uto) 0 % 03/18/22 18:15 Nucleated RBCs # 0.0 /100WBC 03/18/22 18:15 Sodium 139 mmol/L (136-1 45) 03/18/22 18:15 Potassium 3.6 mmol/L (3.5-5 .1) 03/18/22 18:15 Chloride 103 mmol/L (98-10 7) 03/18/22 18:15 Carbon Dioxide 28 mmol/L (22-29) 03/18/22 18:15 Anion Gap 11.6 (5-19) 03/18/22 18:15 BUN 7 mg/dL (6-20) 03/18/22 18:15 Creatinine 0.5 mg/dL (0.5-0. 9) 03/18/22 18:15 GFR Calculation 129.1 mL/min (90- 130) 03/18/22 18:15 Glucose 98 mg/dL (65-115) 03/18/22 18:15 Calculated Osmolal ity 286 mOsm/kg (285- 295) 03/18/22 18:15 Calcium 9.2 mg/dL (8.5-10 .5) 03/18/22 18:15 Total Bilirubin 0.2 mg/dL (0.15-1 .2) 03/18/22 18:15 AST 14 U/L (0-32) 03/18/22 18:15 ALT 17 U/L (0-33) 03/18/22 18:15 Alkaline Phosphata se 105 IU/L (35-105) 03/18/22 18:15 Total Protein 7.3 g/dL (6.6-8.7 ) 03/18/22 18:15 Albumin 4.1 g/dL (3.5-5.2 ) 03/18/22 18:15 Globulin 3.2 g/dL (1.3-4.6 ) 03/18/22 18:15 Salicylates 1.5 mg/dL (3-10) L 03/18/22 18:15 Urine Opiates Scre en Negative ng/mL (N egative) 03/18/22 18:35 Acetaminophen < 5.0 ug/mL (10-3 0) L 03/18/22 18:15 Ur Barbiturates Sc reen Negative ng/mL (N egative) 03/18/22 18:35 Ur Phencyclidine S crn Negative ng/mL (N egative) 03/18/22 18:35 Ur Amphetamines Sc reen Positive ng/mL (N egative) H 03/18/22 18:35 U Benzodiazepines Scrn Positive ng/mL (N egative) H 03/18/22 18:35 Urine Cocaine Scre en Negative ng/mL (N egative) 03/18/22 18:35 U Marijuana (THC) Screen Negative ng/mL (N egative) 03/18/22 18:35 Ethyl Alcohol 10 mg/dL (0-10) 03/18/22 18:15 Vitals: Last Vital Signs Temp 98.5 F 03/21/22 06:00 Pulse 87 03/21/22 06:00 Resp 18 03/21/22 06:00 BP 143/73 03/21/22 06:00 Pulse Ox 96 03/21/22 06:00 Discharge Plan Discharge Patient Disposition: Home Condition: Stable Prescriptions: Continued oxcarbazepine [Trileptal] 600 mg tablet 600 mg PO BID Qty: 60 3RF Rx Instructions: Take one tablet twice per day clonazepam [Klonopin] 1 mg tablet 1 mg PO TID Qty: 90 3RF Rx Instructions: Take one tablet three times per day gabapentin 300 mg capsule 300 mg PO DAILY 0RF clonidine HCl 0.1 mg tablet 0.1 mg PO BID Qty: 60 6RF Rx Instructions: Take one tablet twice per day Vyvanse 70 mg capsule 70 mg PO QAM 30 Days Qty: 30 0RF Rx Instructions: Take one capsule every morning Vyvanse 70 mg capsule 70 mg PO QAM 30 Days Qty: 30 0RF Rx Instructions: Take one capsule every morning Discharge Orders: Discharge Order (Routine); Ordered 03/21/22 Ordered By: Markie Camilo Referrals: Bill Quintero LCSW [Therapist] - 04/08/22 11:00 am (Telehealth apt. ) Antoine Fried, [employer]ING MACHINE ASSEMBLER [Referring] - Renetta Prasad PMHNP [Staff Physician] - 03/26/22 10:15 am (Follow up telehealth) Discharge Diet: Regular Discharge Activity: Resume usual activity Patient Instructions: Opioid Safety Discharge Attestations NPU Time Spent in Discharge Care*: greater than 30 min Specific Discharge Activities: Specific discharge activities: educating patient, discussing with rn case manager/social workers/dc planners, documenting/other paperwork and evaluating patient/reviewing data Coding Level of Care Code Acute [facility] DC note Diagnoses Suicidal ideation R45.851 Borderline personality disorder F60.3 Bipolar II disorder F31.81 Chronic post-traumatic stress disorder F43.12 ADHD (attention deficit hyperactivity disorder), inattentive type F90.0 Panic disorder with agoraphobia F40.01
[2022-03-21 08:57] VITALS: BP 143/73
[2022-03-21] MEDS: OXcarbazepine 300 mg Tablet 600 MG PO (08:57)
[2022-03-21] MEDS: cloNIDine 0.1 mg Tablet PO (08:57)
[2022-03-21] MEDS: CLONazepam 1 mg Tablet PO (08:57)
[2022-03-21] MEDS: gabapentin 300 mg Capsule PO (08:58)
[2022-03-21 10:44] VITALS: BP 143/73; PULSE 87; RESP 18; TEMP 36.9; O2SAT 96
--- NOTE | 2022-03-21 12:21 | PC.NURSE ---
DISCHARGE NOTE ALL DISCHARGE TEACHING COMPLETED AND APPOINTMENTS REVIEWED. VSS, TALITAIES YOUNG. NO DISTRESS NOTED. LEFT WITH SON VIA POV BACK TO HOME. ALL QUESTIONS ANSWERED AND SUPPORT VOICED.
== END 2022-03-21 12:23 | disposition home or self-care (01) | DRG 885 ==
LOC: ER 17:45 → NP 03-19 06:20
PROVIDERS: Admitting Provider Psychiatry & Neurology Psychiatry; Emergency Provider Emergency Medicine; Visit Provider Psychiatry & Neurology Psychiatry
DX: F31.81 Bipolar II disorder (principal); R45.851 Suicidal ideations; F90.0 Attention-deficit hyperactivity disorder, predominantly inattentive type; F60.3 Borderline personality disorder; F43.12 Post-traumatic stress disorder, chronic; F40.01 Agoraphobia with panic disorder
CPT/HCPCS: 80053; 80306; 80307; 85025; 97150; 97165; 99285

== ENCOUNTER → 2022-03-26 06:59 | Outpatient (BNVA) | payer MEDICAID, SELFPAY | PROVIDERS: Visit Provider Nurse Practitioner Psychiatric/Mental Health | DX: F31.81 Bipolar II disorder (principal); F40.01 Agoraphobia with panic disorder; F60.3 Borderline personality disorder; F90.0 Attention-deficit hyperactivity disorder, predominantly inattentive type; F43.12 Post-traumatic stress disorder, chronic; F50.2 Bulimia nervosa | CPT/HCPCS: 99214 ==

== ENCOUNTER → 2022-11-01 10:38 | Outpatient (BNVA) | payer MEDICAID, SELFPAY | PROVIDERS: Visit Provider Nurse Practitioner Psychiatric/Mental Health | DX: F31.60 Bipolar disorder, current episode mixed, unspecified (principal); F40.01 Agoraphobia with panic disorder; F60.3 Borderline personality disorder; F90.0 Attention-deficit hyperactivity disorder, predominantly inattentive type; F43.12 Post-traumatic stress disorder, chronic; F17.210 Nicotine dependence, cigarettes, uncomplicated; Z79.899 Other long term (current) drug therapy | CPT/HCPCS: 80053; 80061; 82607; 82652; 83036; 84443 ==

== ENCOUNTER → 2023-03-04 11:08 | Outpatient (BNVA) | payer MEDICAID, SELFPAY | PROVIDERS: Visit Provider Nurse Practitioner Psychiatric/Mental Health | DX: Z79.899 Other long term (current) drug therapy (principal) | CPT/HCPCS: 80053; 80061; 83036 ==

== ENCOUNTER → 2023-05-07 12:03 | Outpatient (BNVA) | payer MEDICAID, SELFPAY | PROVIDERS: Visit Provider Nurse Practitioner Psychiatric/Mental Health | DX: Z79.899 Other long term (current) drug therapy (principal) | CPT/HCPCS: 80053 ==

== ENCOUNTER 2023-08-02 06:17 | Emergency (ER) | payer MEDICAID, SELFPAY ==
[2023-08-02 06:18] VITALS: PULSE 83; RESP 20; TEMP 36.8; O2SAT 94; BMI 31.6
[2023-08-02 06:24] VITALS: BP 171/144; PULSE 85; RESP 18; O2SAT 96
--- NOTE | 2023-08-02 06:24 | CTR_ITS ---
PROCEDURE INFORMATION: Exam: CT Abdomen And Pelvis With Contrast Exam date and time: 08/02/2023 6:59 AM Age: 53 years old Clinical indication: Abdominal pain; Generalized; Prior surgery; Surgery date: 6+ months; Surgery type: Hernia w mesh, bladder; Additional info: Abd pain TECHNIQUE: Imaging protocol: Computed tomography of the abdomen and pelvis with contrast. Radiation optimization: All CT scans at this facility use at least one of these dose optimization techniques: automated exposure control; mA and/or kV adjustment per patient size (includes targeted exams where dose is matched to clinical indication); or iterative reconstruction. Contrast material: OMNI 350; Contrast volume: 100 ml; Contrast route: INTRAVENOUS (IV); REPORTING DATA: Count of CT and Cardiac NM exams in prior 12 months: This patient has received 0 known CTs and 0 known cardiac nuclear medicine studies in the 12 months prior to the current study. COMPARISON: MR lumbar spine wo con* [id number] 01/15/2022 1:25 PM RADIATION DOSE METRICS: Total DLP (mGy-cm): 818.63 FINDINGS: Lungs: Lung bases are clear. Liver: Liver demonstrates multiple hepatic cysts, largest measuring up to 6.0 cm in the posterior liver. Internally, these cysts are homogeneous, measuring roughly 10 Hounsfield units Gallbladder and bile ducts: The gallbladder is unremarkable. No biliary ductal dilatation. Pancreas: Severe fatty atrophy of the pancreas. Spleen: The spleen is unremarkable. Adrenal glands: The adrenal glands are unremarkable. Kidneys and ureters: Multiple bilateral renal cysts up to 3.5 cm. No hydronephrosis. No nephrolithiasis. Stomach and bowel: A segment of descending colon in the left hemiabdomen demonstrates moderate circumferential wall thickening (coronal series 6, image 27; sagittal series 7, image 9; axial series 4, image 44) with minimal/questionable surrounding stranding. Appendix: No evidence of acute appendicitis. Intraperitoneal space: Unremarkable. No free air. No significant fluid collection. Vasculature: Multiple pelvic phleboliths noted. Lymph nodes: No suspicious lymphadenopathy. Urinary bladder: Urinary bladder is within normal limits. Reproductive: Uterus is absent. Bones/joints: Status post posterior lumbar fusion of L4-S1, with disc spacers at L4-L5 and L5-S1. No radiographic evidence of hardware fracture or perihardware lucency. No acute osseous findings. Soft tissues: Multiple tiny coils anterior to the left lower quadrant abdominal wall, consistent with prior hernial mesh. Midline ventral soft tissues demonstrate scarring consistent with prior midline supraumbilical incision. CT/CT abdomen pelvis w con* [id number] IMPRESSION: 1. A segment of descending colon in the left hemiabdomen demonstrates moderate circumferential wall thickening with minimal/questionable surrounding stranding. This is likely physiologic but can be seen in the setting of mild nonspecific colitis. 2. Benign-appearing hepatic cysts measuring up to 6.0 cm, as above. COMMENTS: Consistent with the [employer]'s Incidental Findings Committee white paper (J Am Stefan Radiol 2018): Any incidental renal lesion less than 1 cm or classified as too small to characterize, or any incidental cystic renal lesion characterized as simple-appearing, is likely benign. No follow-up imaging is recommended for these lesions per consensus recommendations based on imaging criteria.
--- NOTE | 2023-08-02 06:25 | ED_ITS ---
HPI - GI Bleed General: Chief complaint: GI Bleed Stated complaint: ABD PAIN Time Seen by Provider: 08/02/23 06:18 Source: patient and EMS Mode of arrival: EMS Limitations: no limitations History of Present Illness: 53-year-old female states she been having lower abdominal pain over the last 2 days. States pain is in the left lower quadrant sharp in nature at its worst is a 9 out of 10. She denies any vomiting states she has had bright red blood in her stool as well denies any diarrhea. She has had history of abdominal surgeries including hernia repairs. She denies any worsening improving factors. Associated symptoms: Reports abdominal pain; Denies chills, fever(s), headache(s), nausea, rash or vomiting Review of Systems Const: Denies: fever(s), chills, body aches or change in appetite ENMT: Denies: throat pain or dental pain Card: Denies: chest pain Resp: Denies: dyspnea GI: Reports: abdominal pain and hematochezia; Denies: nausea, vomiting or diarrhea : Denies: dysuria Musc: Denies: neck pain or back pain Skin/Breast: Denies: rash Neuro: Denies: headache(s) PFSH ED PFSH: Medical History ADHD (attention deficit hyperactivity disorder), inattentive type Bipolar I disorder, most recent episode (or current) mixed Borderline personality disorder Chronic post-traumatic stress disorder Panic disorder with agoraphobia Psychiatric care Vaping nicotine dependence, tobacco product Social History Current gender identity: Female Physical Exam Const: COMMON NORMALS: no acute distress, patient oriented x3 and healthy appearing HENMT: COMMON NORMALS: normocephalic and atraumatic HEAD & SCALP: normocephalic and atraumatic Eye: COMMON NORMALS: conjunctivae normal CONJUNCTIVA: Yes conjunctivae normal Neck/C-Spine: COMMON NORMALS: full ROM and supple Chest: COMMONS NORMALS: normal inspection of the chest and normal palpation of entire chest wall Resp: COMMON NORMALS: normal respiratory effort, No retractions, No use of accessory muscles and clear to auscultation bilaterally AUSCULTATION: clear to auscultation bilaterally Cardio: COMMON NORMALS: regular rate, regular rhythm and No murmurs present (Cardio) RATE: regular rate RHYTHM: regular rhythm GI: COMMON NORMALS: Normal to inspection, nondistended, normoactive bowel sounds present, Soft to palpation and no masses PALPATION: Yes Soft to palpation RECTAL EXAM: visual inspection normal and heme negative stool OTHER: llq tenderness Extremity: COMMON NORMALS: normal to inspection and full ROM Neuro: COMMON NORMALS: patient oriented x3, moves all extremities and no focal motor deficits Psych: COMMON NORMALS: mental status grossly normal, Normal thought process present and cooperative THOUGHT PROCESS: Normal thought process present Skin: COMMON NORMALS: no rashes or lesions noted and no wounds GENERAL SKIN EXAM: no rashes or lesions noted Course Vital Signs: Vital signs: Vital Signs Temperature 98.3 F 08/02/23 06:18 Pulse Rate 87 08/02/23 08:08 Respiratory Rate 16 08/02/23 08:08 Blood Pressure 135/91 08/02/23 06:54 Pulse Oximetry 95 08/02/23 08:08 Oxygen Delivery Me thod Room Air 08/02/23 06:24 MDM - GI Bleed Medical Decision Making Patient presents here with abdominal pain with some slight blood in her stool her rectal exam here showed no blood she is not anemic her pain has improved her exam at discharge benign CT showed a colitis likely causing her blood in her stool we will place her on Cipro Flagyl along with pain medication she is to follow-up with surgery for likely colonoscopy return if worsening she understands agrees to plan. Medical Records I reviewed the patient's medical records. Lab Data I reviewed the patient's lab results. 08/02/23 06:43 08/02/23 06:43 Radiology Impressions Abdomen/Pelvis CT 08/02/23 06:24 IMPRESSION: 1. A segment of descending colon in the left hemiabdomen demonstrates moderate circumferential wall thickening with minimal/questionable surrounding stranding. This is likely physiologic but can be seen in the setting of mild nonspecific colitis. 2. Benign-appearing hepatic cysts measuring up to 6.0 cm, as above. COMMENTS: Consistent with the [employer]'s Incidental Findings Committee white paper (J Am Stefan Radiol 2018): Any incidental renal lesion less than 1 cm or classified as too small to characterize, or any incidental cystic renal lesion characterized as simple-appearing, is likely benign. No follow-up imaging is recommended for these lesions per consensus recommendations based on imaging criteria. Laboratory Results WBC 12.36 10^3/uL (3.29-11.43) H 08/02/23 06:43 RBC 4.87 10^6/uL (3.85-5.65) 08/02/23 06:43 Hgb 13.80 g/dL (11.27-16.99) 08/02/23 06:43 Hct 43.5 % (36-47) 08/02/23 06:43 MCV 89.3 fl (85-98) 08/02/23 06:43 MCH 28.3 pg (27-33) 08/02/23 06:43 MCHC 31.7 g/dL (30-55) 08/02/23 06:43 RDW 14.7 % (12.1-15.1) 08/02/23 06:43 Plt Count 345 10^3/cmm (157-399) 08/02/23 06:43 MPV 9.7 fL (7.4-10.4) 08/02/23 06:43 Neut % (Auto) 69.1 % 08/02/23 06:43 Lymph % (Auto) 22.6 % 08/02/23 06:43 Morgan % (Auto) 6.1 % 08/02/23 06:43 Eos % (Auto) 1.3 % 08/02/23 06:43 Baso % (Auto) 0.3 % 08/02/23 06:43 Neut # (Auto) 8.54 10^3/uL (1.8-7.7) H 08/02/23 06:43 Lymph # (Auto) 2.8 10^3/uL (0.8-4.8) 08/02/23 06:43 Morgan # (Auto) 0.8 10^3/uL (0.2-0.9) 08/02/23 06:43 Eos # (Auto) 0.2 10^3/uL (0.0-0.8) 08/02/23 06:43 Baso # (Auto) 0.0 10^3/uL (0.0-0.1) 08/02/23 06:43 Nucleated RBC % (auto) 0 % 08/02/23 06:43 Nucleated RBCs # 0.0 /100WBC 08/02/23 06:43 Sodium 143 mmol/L (136-145) 08/02/23 06:43 Potassium 3.4 mmol/L (3.5-5.1) L 08/02/23 06:43 Chloride 106 mmol/L (98-107) 08/02/23 06:43 Carbon Dioxide 27 mmol/L (22-29) 08/02/23 06:43 Anion Gap 13.4 (5-19) 08/02/23 06:43 BUN 10 mg/dL (6-20) 08/02/23 06:43 Creatinine 0.7 mg/dL (0.5-0.9) 08/02/23 06:43 GFR Calculation 87.2 mL/min (90-130) L 08/02/23 06:43 Glucose 108 mg/dL (65-115) 08/02/23 06:43 Calculated Osmolality 296 mOsm/kg (285-295) H 08/02/23 06:43 Calcium 9.0 mg/dL (8.5-10.5) 08/02/23 06:43 Total Bilirubin 0.6 mg/dL (0.15-1.2) 08/02/23 06:43 AST 20 U/L (0-32) 08/02/23 06:43 ALT 30 U/L (0-33) 08/02/23 06:43 Alkaline Phosphatase 110 U/L (35-105) H 08/02/23 06:43 Total Protein 7.4 g/dL (6.6-8.7) 08/02/23 06:43 Albumin 4.3 g/dL (3.5-5.2) 08/02/23 06:43 Globulin 3.1 g/dL (1.3-4.6) 08/02/23 06:43 Lipase 14 U/L (13-60) 08/02/23 06:43 All radiology interpretation(s) finalized by discharge Discharge Plan Discharge Patient Disposition: Home Clinical Impression: Colitis Condition: Stable Prescriptions: New hydrocodone-acetaminophen 5-325 mg tablet 1 tab PO Q6H PRN (Reason: pain) Qty: 14 0RF metronidazole 500 mg tablet 500 mg PO Q8H 7 Days Qty: 21 0RF Cipro 500 mg tablet 500 mg PO BID Qty: 14 0RF ondansetron 4 mg tablet,disintegrating 4 mg PO Q6H PRN (Reason: nausea and vomiting) Qty: 14 0RF No Action acetaminophen [Tylenol] 325 mg tablet 975 mg PO Q6H PRN (Reason: pain) ibuprofen 600 mg tablet 600 mg PO Q8H PRN clonidine HCl 0.1 mg tablet 0.1 mg PO BID PRN (Reason: hypertensive emergency) Qty: 60 3RF Rx Instructions: Take one tablet twice per day ondansetron 8 mg tablet,disintegrating 8 mg PO Q8H PRN (Reason: nausea and vomiting) Qty: 60 3RF Rx Instructions: May take one tablet every 8 hours as needed for nausea/vomiting potassium chloride 10 mEq tablet extended release 10 meq PO DAILY Vyvanse 70 mg capsule 70 mg PO QAM 30 Days Qty: 30 0RF Vyvanse 70 mg capsule 70 mg PO QAM 30 Days Qty: 30 0RF clonazepam [Klonopin] 1 mg tablet 1 mg PO TID Qty: 90 2RF Rx Instructions: Take one tablet three times per day lumateperone 21 mg capsule 21 mg PO .evening Qty: 30 3RF Rx Instructions: Take one capsule every evening with meal Discharge Orders: Discharge ED (Routine); Ordered 08/02/23 Ordered By: Karen Kumar Referrals: Duglas Cabrera MD [Physician] - 1-3 days Discharge Diet: Advance as tolerated Discharge Activity: Resume usual activity Patient Instructions: Colitis (ED), Opioid Safety Coding Level of Care Code ED Alarm Service Technician for Gagan Zambrano
[2023-08-02] MEDS: HYDROmorphone 1 mg/mL INJ 1 mL 0.5 MG IVP (06:48)
[2023-08-02 06:54] VITALS: BP 135/91; PULSE 92; O2SAT 94
[2023-08-02 07:05] LABS: Basophils % 0.3 %; Eosinophils # 0.2 10^3/uL (0.0-0.8); Eosinophils % 1.3 %; Hematocrit 43.5 % (36-47); Lymphocytes # 2.8 10^3/uL (0.8-4.8); Lymphocytes % 22.6 %; Mean Corpuscular HGB Conc 31.7 g/dL (30-55); Mean Corpuscular Hemoglobin 28.3 pg (27-33); Mean Corpuscular Volume 89.3 fl (85-98); Mean Platelet Volume 9.7 fL (7.4-10.4); Monocytes # 0.8 10^3/uL (0.2-0.9); Monocytes % 6.1 %; Neutrophils # 8.54 10^3/uL (1.8-7.7); Neutrophils % 69.1 %; Nucleated Red Blood Cells % 0 %; Platelet Count 345 10^3/cmm (157-399); Red Blood Count 4.87 10^6/uL (3.85-5.65); Red Cell Distribution Width 14.7 % (12.1-15.1); White Blood Count 12.36 10^3/uL (3.29-11.43)
[2023-08-02] MEDS: iohexol 350 mg/mL 500 mL Btl (per mL) IV (07:18)
[2023-08-02 07:23] LABS: Alanine Aminotransferase 30 U/L (0-33); Albumin Level 4.3 g/dL (3.5-5.2); Alkaline Phosphatase 110 U/L (35-105); Anion Gap 13.4 (5-19); Aspartate Amino Transferase 20 U/L (0-32); Blood Urea Nitrogen 10 mg/dL (6-20); Carbon Dioxide 27 mmol/L (22-29); Chloride 106 mmol/L (98-107); Globulin 3.1 g/dL (1.3-4.6); Glomerular Filtration Rate 87.2 mL/min (90-130); Glucose 108 mg/dL (65-115); Lipase 14 U/L (13-60); Osmolality Calculated 296 mOsm/kg (285-295); Potassium 3.4 mmol/L (3.5-5.1); Sodium 143 mmol/L (136-145); Total Bilirubin 0.6 mg/dL (0.15-1.2); Total Protein 7.4 g/dL (6.6-8.7)
[2023-08-02 08:08] VITALS: PULSE 87; RESP 16; O2SAT 95
--- NOTE | 2023-08-04 08:14 | PC.SOCIAL ---
General Surgery Referral Referral message sent to clinic at this time. Clinic to contact patient with appt date/time.
== END 2023-08-02 08:09 | disposition home or self-care (01) ==
PROVIDERS: Emergency Provider Emergency Medicine; PCP Nurse Practitioner
DX: K52.9 Noninfective gastroenteritis and colitis, unspecified (principal)
CPT/HCPCS: 74177; 80053; 83690; 85025; 96374; 99285; J1170; Q9967

== ENCOUNTER → 2023-09-25 12:52 | Outpatient (BNVA) | payer MEDICAID, SELFPAY | PROVIDERS: PCP Nurse Practitioner; Referring Provider Emergency Medicine; Visit Provider Surgery | DX: K52.9 Noninfective gastroenteritis and colitis, unspecified (principal) | CPT/HCPCS: 99203 ==

== ENCOUNTER → 2024-03-01 14:32 | Outpatient (BNVA) | payer MEDICAID, SELFPAY | PROVIDERS: PCP Nurse Practitioner; Visit Provider Nurse Practitioner Psychiatric/Mental Health | DX: F90.0 Attention-deficit hyperactivity disorder, predominantly inattentive type (principal); Z79.899 Other long term (current) drug therapy | CPT/HCPCS: 80053; 80061; 80307; 83036 ==

== ENCOUNTER → 2024-04-26 14:11 | Outpatient (BNVA) | payer OTHER, SELFPAY | PROVIDERS: PCP Nurse Practitioner; Visit Provider Nurse Practitioner Psychiatric/Mental Health | DX: F31.63 Bipolar disorder, current episode mixed, severe, without psychotic features (principal); Z79.899 Other long term (current) drug therapy; F60.3 Borderline personality disorder; F43.12 Post-traumatic stress disorder, chronic; F90.0 Attention-deficit hyperactivity disorder, predominantly inattentive type; F40.01 Agoraphobia with panic disorder; F17.290 Nicotine dependence, other tobacco product, uncomplicated | CPT/HCPCS: 80053 ==

== ENCOUNTER → 2025-01-25 15:51 | Outpatient (BNVA) | payer OTHER, SELFPAY | PROVIDERS: PCP Nurse Practitioner; Visit Provider Nurse Practitioner Psychiatric/Mental Health | DX: Z79.899 Other long term (current) drug therapy (principal) | CPT/HCPCS: 80053; 80061; 80307; 83036 ==

== ENCOUNTER 2025-03-30 11:05 | Outpatient (CLI) | payer MEDICAID, SELFPAY ==
[2025-03-30 11:45] LABS: Basophils # 0.1 10^3/uL (0.0-0.1); Basophils % 0.4 %; Eosinophils # 0.3 10^3/uL (0.0-0.8); Eosinophils % 2.4 %; Hematocrit 45.4 % (36-47); Lymphocytes # 2.2 10^3/uL (0.8-4.8); Lymphocytes % 19.3 %; Mean Corpuscular HGB Conc 31.7 g/dL (30-55); Mean Corpuscular Hemoglobin 26.5 pg (27-33); Mean Corpuscular Volume 83.6 fl (85-98); Mean Platelet Volume 9.7 fL (7.4-10.4); Monocytes # 0.7 10^3/uL (0.2-0.9); Monocytes % 6.1 %; Neutrophils # 8.02 10^3/uL (1.8-7.7); Neutrophils % 71.5 %; Nucleated Red Blood Cells % 0 %; Platelet Count 368 10^3/cmm (157-399); Red Blood Count 5.43 10^6/uL (3.85-5.65); Red Cell Distribution Width 15.8 % (12.1-15.1); White Blood Count 11.22 10^3/uL (3.29-11.43)
[2025-03-30 12:10] LABS: Alanine Aminotransferase 15 U/L (0-33); Albumin Level 4.4 g/dL (3.5-5.2); Alkaline Phosphatase 89 U/L (35-105); Anion Gap 17.9 (5-19); Aspartate Amino Transferase 15 U/L (0-32); Blood Urea Nitrogen 18 mg/dL (6-20); Calcium 9.4 mg/dL (8.5-10.5); Carbon Dioxide 23 mmol/L (22-29); Chloride 103 mmol/L (98-107); Globulin 3.5 g/dL (1.3-4.6); Glomerular Filtration Rate 64.8 mL/min (90-130); Glucose 89 mg/dL (65-115); Osmolality Calculated 291 mOsm/kg (285-295); Potassium 3.9 mmol/L (3.5-5.1); Sodium 140 mmol/L (136-145); Total Bilirubin 0.4 mg/dL (0.15-1.2); Total Protein 7.9 g/dL (6.6-8.7)
[2025-03-30 12:18] LABS: HIV 1 & 2 Antibody Non-Reactive (Non-Reactiv); HIV 1 & 2 Antigen Non-Reactive (Non-Reactiv)
[2025-03-30 12:21] LABS: Hepatitis A Antibody IgM Non-Reactive (Nonreactive); Hepatitis B Core IgM Non-Reactive (Nonreactive); Hepatitis B Surface Antigen Non-Reactive (Nonreactive); Hepatitis C Virus Antibody Non-Reactive (Nonreactive)
[2025-04-01 20:39] LABS: Quantiferon Mitogen 8.24 IU/mL; Quantiferon Nil 0.02 IU/mL; Quantiferon Plus TB2 <0.00 IU/mL; Quantiferon TB Gold NEGATIVE (NEGATIVE)
== END 2025-03-30 11:06 | disposition home or self-care (01) ==
PROVIDERS: PCP Nurse Practitioner; Visit Provider Nurse Practitioner Family
DX: L40.0 Psoriasis vulgaris (principal); L44.8 Other specified papulosquamous disorders; L57.8 Other skin changes due to chronic exposure to nonionizing radiation; L81.4 Other melanin hyperpigmentation; L73.8 Other specified follicular disorders
CPT/HCPCS: 36415; 80053; 80074; 85025; 86480; 87806; 99204